=== PATIENT | female | born 1990 | race Caucasian/White ===

== ENCOUNTER 2024-03-26 19:39 | Emergency (ER) | payer OTHER ==
[2024-03-26 20:16] VITALS: BP 118/73; PULSE 68; RESP 16; TEMP 98.4; BMI 35.2
== END 2024-03-26 22:46 | disposition home or self-care (01) ==
LOC: FER 19:39
DX: R07.81 Pleurodynia (principal); R06.02 Shortness of breath
CPT/HCPCS: 71046-TC-FY; 99284-25